=== PATIENT | female | born 2000 | race Caucasian/White ===

== ENCOUNTER 2020-10-03 00:42 | Inpatient (IN) | payer BC, MEDICAID ==
[2020-10-03] MEDS ORDERED: SODIUM CHLORIDE 0.9% 1,000 ML IV ONE (01:33)
--- NOTE | 2020-10-03 02:54 | ED ---
Overdose HPI - General Source: EMS Mode of arrival: EMS Limitations: no limitations - History of Present Illness MD Complaint: intentional overdose -: hour(s) Intent: suicide attempt <Antoni Feng - Last Filed: 10/03/20 06:36> <Mino Zaidi - Last Filed: 10/03/20 08:11> - General Chief Complaint: Overdose Stated Complaint: overdose transfer Time Seen by Provider: 10/03/20 00:44 - History of Present Illness Initial Comments: This patient is a 19-year-old woman who is here as a transfer from [facility]. The patient had gone there tonight with complaint of feeling depressed, having suicidal ideation, and then having taken a number of extra doses of her home medications. The patient was not able to quantify exactly how much medication but had taken a number of extra doses of melatonin 10 mg, buspirone 15 mg, and propranolol 10 mg. It amounted to approximately 15 tablets over the course of the day. The patient had some studies there are none was transferred here as she was tachycardic and her initial presenting blood pressure was hypotensive, she was normotensive by time of transfer. When I interview the patient, she does states she is depressed and feeling suicidal. She is denying having any pain or dyspnea. She had some nausea and a couple of rounds of vomiting at the other facility but that has subsequently stopped. (Antoni Feng) - Related Data Allergies Allergy/AdvReac Type Severity Reaction Status Date / Time doxycycline Allergy Rash/Hives Verified 10/03/20 08:09 Iodine and Iodide Containing AdvReac Rapid Verified 10/03/20 08:09 Produc Heart Rate Review of Systems ROS Other: All systems not noted in ROS Statement are negative. Constitutional: Denies: fever, chills, weakness Eyes: Denies: vision change Respiratory: Denies: cough, dyspnea Cardiovascular: Denies: chest pain, palpitations, orthopnea, edema, syncope Gastrointestinal: Reports: as per HPI, nausea, vomiting. Denies: abdominal pain, diarrhea, constipation, hematemesis Genitourinary: Denies: dysuria, hematuria, abnormal menses Musculoskeletal: Denies: back pain Skin: Denies: rash Neurological: Denies: headache, weakness, numbness, abnormal gait Psychiatric: Reports: depression, suicidal thoughts. Denies: auditory hallucinations, visual hallucinations, homicidal thoughts <Antoni Feng - Last Filed: 10/03/20 06:36> ROS Other: All systems not noted in ROS Statement are negative. <Mino Zaidi - Last Filed: 10/03/20 08:11> ROS Statement: Those systems with pertinent positive or pertinent negative responses have been documented in the HPI. Past Medical History Past Medical History: Diabetes Mellitus, Thyroid Disorder Additional Past Medical History / Comment(s): Diabetes type 1, crohns, and hypothyroidism. History of Any Multi-Drug Resistant Organisms: None Reported Past Psychological History: ADD/ADHD, Anxiety, Depression, Schizoaffective Disorder Smoking Status: Vaper Past Alcohol Use History: Occasional Past Drug Use History: None Reported <Antoni Feng - Last Filed: 10/03/20 06:36> General Exam Limitations: no limitations General appearance: alert, in no apparent distress Head exam: Present: atraumatic, normocephalic Eye exam: Present: normal appearance. Absent: scleral icterus, conjunctival injection ENT exam: Present: normal oropharynx Neck exam: Present: normal inspection, full ROM Respiratory exam: Present: normal lung sounds bilaterally. Absent: respiratory distress, wheezes, rales, rhonchi, stridor Cardiovascular Exam: Present: regular rate, normal rhythm, normal heart sounds. Absent: systolic murmur, diastolic murmur, rubs, gallop GI/Abdominal exam: Present: soft. Absent: distended, tenderness, guarding, rebound, rigid, mass Extremities exam: Present: normal inspection, normal capillary refill. Absent: pedal edema, calf tenderness Back exam: Present: normal inspection. Absent: CVA tenderness (R), CVA tenderness (L) Neurological exam: Present: alert, oriented X3, normal gait Psychiatric exam: Present: depressed, suicidal ideation. Absent: agitated, anxious, flat affect, manic, homicidal ideation Skin exam: Present: warm, dry, intact, normal color. Absent: rash <KinzanyasiaAntoni - Last Filed: 10/03/20 06:36> Course <Mino Zaidi - Last Filed: 10/03/20 08:11> Vital Signs 10/03/20 10/03/20 10/03/20 00:46 02:03 03:00 Temperature 98.0 F Pulse Rate 99 101 H 100 Respiratory 20 20 18 Rate Blood Pressure 97/57 97/55 113/63 O2 Sat by Pulse 97 97 97 Oximetry 10/03/20 10/03/20 04:07 05:00 Temperature Pulse Rate 102 H 102 H Respiratory 18 20 Rate Blood Pressure 112/72 106/62 O2 Sat by Pulse 97 97 Oximetry - Reevaluation(s) Reevaluation #1: 10/03/20 08:08 Patient was endorsed me by Dr. Feng at our shift change. Pending evaluation by the EPS service. Patient is awake alert oriented 3 demonstrating evidence of depression and suicidal ideation. Patient will be admitted for inpatient evaluation and treatment. (Mino Zaidi) Medical Decision Making - EKG Data -: EKG Interpreted by Me EKG shows normal: sinus rhythm (With sinus arrhythmia, rate 82 bpm), axis (Normal), intervals (Normal), QRS complexes (Normal), ST-T waves (Normal) Rate: normal <Antoni Feng - Last Filed: 10/03/20 06:36> - Medical Decision Making Patient is 19-year-old woman who took a mixture of her prescribed medicines and then went to outside hospital. She was transferred here for availability of more comprehensive care. The patient is observed here in the department and her heart rhythm and blood pressure remained stable. She is cleared for behavioral health evaluation. (Antoni Feng) - Lab Data Lab Results 10/03/20 Range/Units 07:12 POC Glucose (mg/dL) 106 H (75-99) mg/dL POC Glu Miner Helper ID Roderick Jordan Disposition <Antoni Feng - Last Filed: 10/03/20 06:36> <Mino Zaidi - Last Filed: 10/03/20 08:11> Clinical Impression: Drug overdose, Suicidal ideation Disposition: TRANSFER TO PSYCH HOSP/UNIT Condition: Fair Referrals: Marie Delgado MD [Primary Care Provider] - 1-2 days
[2020-10-03 07:14] LABS: Glucose,Whole Blood 106 mg/dL (75-99)
--- NOTE | 2020-10-03 08:41 | ED ---
Medical Decision Making - Lab Data Lab Results 10/03/20 10/03/20 Range/Units 07:12 07:47 POC Glucose (mg/dL) 106 H (75-99) mg/dL POC Glu System Sales Consultant ID Roderick Jordan Coronavirus (PCR) Not Detected (Not Detectd) - EKG Data -: EKG Interpreted by Me EKG shows normal: sinus rhythm, axis, intervals, QRS complexes EKG Comments: Sinus rhythm a 97 MO interval 150 QRS duration 76 daily since QTC 344/449 nonspecific T-wave changes Disposition Clinical Impression: Drug overdose, Suicidal ideation Disposition: TRANSFER TO PSYCH HOSP/UNIT Condition: Fair Referrals: Marie Delgado MD [Primary Care Provider] - 1-2 days
[2020-10-03] MEDS ORDERED: MAGNESIUM HYDROXIDE 2,400 MG/10 ML CUP PO PRN (10:36)
[2020-10-03] MEDS ORDERED: ACETAMINOPHEN TAB 325 MG TAB PO PRN (10:36)
[2020-10-03] MEDS ORDERED: MAG HYDROX/AL HYDROX/SIMETH 30 ML CUP PO PRN (10:36)
[2020-10-03] MEDS ORDERED: hydrOXYzine pamoate 25 MG CAP PO PRN (10:39)
[2020-10-03] MEDS ORDERED: HALOPERIDOL LACTATE 5 MG/ML 1 ML VIAL IM PRN (10:41)
[2020-10-03] MEDS ORDERED: haloperidoL 5 MG TAB PO PRN (10:42)
[2020-10-03] MEDS ORDERED: NICOTINE 14MG/24HR PATCH TRANSDERM SCH (10:45)
[2020-10-03 12:42] LABS: Glucose,Whole Blood 89 mg/dL (75-99)
[2020-10-03] MEDS: NICOTINE 21MG/24HR PATCH TRANSDERM SCH (13:40)
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
[2020-10-03 16:08] VITALS: RESP 18
[2020-10-03] MEDS: busPIRone HCl 5 MG TAB PO SCH ×3 (16:25→21:02)
[2020-10-03] MEDS: IBUPROFEN 400 MG TAB PO PRN (16:28)
[2020-10-03 18:03] LABS: Glucose,Whole Blood 102 mg/dL (75-99)
[2020-10-03 19:58] LABS: Glucose,Whole Blood 127 mg/dL (75-99)
[2020-10-03] MEDS ORDERED: VENLAFAXINE HCL ER 75 MG CAP PO SCH (21:00)
[2020-10-03] MEDS: DESMOPRESSIN 0.2 MG TAB PO SCH (21:02)
--- NOTE | 2020-10-03 23:34 | P.CONS ---
History of Present Illness - Reason for Consult Consult date: 10/03/20 - History of Present Illness The patient is a 19-year-old transgender male with a PMH of hypothyroidism, depression, and type II DM who was transferred to emergency room from [facility] after a suicide attempt by overdose. Reportedly, the patient took a seven-day supply of all of his medications due to suicidal ideation. The patient notes that the voices in his head were telling him to kill himself. He reported some mild diffuse abdominal pain and denied additional complaints. Denied chest pain, shortness of breath, palpitation, nausea, vomiting, diarrhea, fever, chills, cough. In the emergency room, EKG revealed normal sinus rhythm with sinus arrhythmia at 97 bpm with T-wave flattening in V1, V5, and V6. Review of Systems Pertinent positives and negatives as discussed in HPI, a complete review of systems was performed and all other systems are negative. Past Medical History Past Medical History: Diabetes Mellitus, Thyroid Disorder Additional Past Medical History / Comment(s): Diabetes type 1, crohns, and hypothyroidism. History of Any Multi-Drug Resistant Organisms: None Reported Smoking Status: Former smoker, Vaper Medications and Allergies Home Medications Medication Instructions Recorded Confirmed Type Cetirizine HCl [Zyrtec] 10 mg PO DAILY 10/03/20 10/03/20 History Desmopressin Acetate 0.1 mg PO HS 10/03/20 10/03/20 History Levothyroxine Sodium [Synthroid] 75 mcg PO DAILY 10/03/20 10/03/20 History Melatonin 15 mg PO HS 10/03/20 10/03/20 History Prazosin [Minipress] 3 mg PO HS 10/03/20 10/03/20 History Propranolol [Inderal] 10 mg PO TID 10/03/20 10/03/20 History busPIRone HCL 15 mg PO TID 10/03/20 10/03/20 History haloperidoL [Haldol] 5 mg PO HS 10/03/20 10/03/20 History hydrOXYzine pamoate [Vistaril] 50 mg PO BID PRN 10/03/20 10/03/20 History metFORMIN HCL [Glucophage] 500 mg PO DAILY 10/03/20 10/03/20 History traZODone HCL 50 - 150 mg PO HS 10/03/20 10/03/20 History Allergies Allergy/AdvReac Type Severity Reaction Status Date / Time Iodine and Iodide Containing Allergy Severe Anaphylaxis Verified 10/03/20 12:13 Produc shellfish derived [Shellfish] Allergy Severe Anaphylaxis Verified 10/03/20 12:13 doxycycline Allergy Intermediate Rash/Hives Verified 10/03/20 12:02 papaya Allergy Intermediate Rash/Hives Verified 10/03/20 12:13 Physical Exam Vitals: Vital Signs Temp Pulse Pulse Resp BP BP Pulse Ox 10/03/20 16:06 97.8 F 95 18 139/76 10/03/20 14:30 97.2 F L 65 20 122/75 100 10/03/20 05:00 102 H 20 106/62 97 10/03/20 04:07 102 H 18 112/72 97 10/03/20 03:00 100 18 113/63 97 10/03/20 02:03 101 H 20 97/55 97 10/03/20 00:46 98.0 F 99 20 97/57 97 Intake and Output 10/03/20 10/03/20 10/04/20 14:59 22:59 06:59 Other: Weight 87.657 kg General: non toxic, no distress, appears at stated age, obese Derm: no unusual rashes/lesions no unusual ecchymoses, warm, dry Head: atraumatic, normocephalic, symmetric Eyes: EOMI, no lid lag, anicteric sclera, pupils equal round reactive to light ENT: Nose and ears atraumatic, no thrush, no pharyngeal erythema Neck: No thyromegaly, no cervical lymphadenopathy, trachea midline, supple Mouth: no lip lesion, mucus membranes moist Cardiovascular: S1S2 reg, no murmur, positive posterior tibial pulse bilateral, no edema, capillary refill less than 2 seconds Lungs: CTA bilateral, no rhonchi, no rales , no accessory muscle use Abdominal: soft, minimal diffuse tenderness, no guarding, no appreciable organ omegaly, normal bowel sounds Ext: no gross muscle atrophy, muscle strength 5 out of 5 in all 4 extremities grossly, no contractures, Neuro: CN II-XI grossly intact, light touch intact all 4 extremities, finger to nose within normal limits, Psych: Alert, oriented, appropriate affect Results Labs: Abnormal Lab Results - Last 24 Hours (Table) 10/03/20 10/03/20 10/03/20 Range/Units 07:12 18:01 19:55 POC Glucose (mg/dL) 106 H 102 H 127 H (75-99) mg/dL Assessment and Plan Plan: Multiple substance overdose -Obtain repeat labs -Patient currently symptom-free aside from minimal abdominal pain Chronic conditions: Hypothyroidism, type II DM -Continue home medications in am following labs Depression and suicidal ideation -As per psychiatry Thank you for allowing us to participate in the care of this patient. We will follow peripherally. Do not hesitate to contact us with questions. Someone can be reached from the [facility] hospitalist group at all hours of the day at [phone].
[2020-10-04] MEDS: LEVOTHYROXINE 75 MCG TAB PO SCH (06:18)
[2020-10-04] MEDS: NICOTINE 21MG/24HR PATCH TRANSDERM SCH (08:09)
[2020-10-04] MEDS: busPIRone HCl 5 MG TAB PO SCH ×3 (08:10→21:28)
[2020-10-04] MEDS: LORATADINE 10 MG TAB PO SCH (08:10)
[2020-10-04 08:20] LABS: Glucose,Whole Blood 103 mg/dL (75-99)
[2020-10-04 09:18] LABS: HCT 40.9 % (34.0-46.0); HGB 13.8 gm/dL (11.4-16.0); MCH 28.5 pg (25.0-35.0); MCHC 33.8 g/dL (31.0-37.0); MCV 84.5 fL (80.0-100.0); Mean Platelet Volume 8.2; Platelet Count 359 k/uL (150-450); RBC 4.84 m/uL (3.80-5.40); RDW 13.7 % (11.5-15.5); WBC 11.2 k/uL (4.0-11.0)
[2020-10-04 09:27] LABS: ALT 40 U/L (4-34); AST 20 U/L (14-36); African American GFR (CKD) >90 (>60 ml/min/1.73 sqM); Albumin 4.4 g/dL (3.5-5.0); Alkaline Phosphatase 85 U/L (38-126); Anion Gap 10 mmol/L; Blood Urea Nitrogen 11 mg/dL (7-17); Calcium 9.8 mg/dL (8.4-10.2); Carbon Dioxide 22 mmol/L (22-30); Chloride 107 mmol/L (98-107); Cholesterol 158 mg/dL (<200); Glucose 139 mg/dL (74-99); HDL Cholesterol 42 mg/dL (40-60); LDL Cholesterol,Calculated 90 mg/dL (0-99); Non-African American GFR(CKD) >90 (>60 ml/min/1.73 sqM); Potassium 4.7 mmol/L (3.5-5.1); Sodium 139 mmol/L (137-145); Total Bilirubin 0.8 mg/dL (0.2-1.3); Total Protein 7.3 g/dL (6.3-8.2); Triglycerides 132 mg/dL (<150)
[2020-10-04] MEDS: NICOTINE POLACRILEX 2 MG GUM BUCCAL PRN ×2 (10:37→21:32)
--- NOTE | 2020-10-04 10:59 | P.PN ---
Progress Note - Text Progress Note Date: 10/04/20 Interval History: Patient is a female to male transgender patient who prefers he/him pronouns and goes by the name Melo. Patient was seen attending group and was directable and agreeable to speak with insurance underwriter sales in the office. She continues to endorse significant depression and anxiety. At this time, the patient is wondering why he was not started on his home medications of clonidine and melatonin. He was informed that this was not listed as all medications on the medical record. He reports no significant benefit at this time from the medication management. He is currently endorsing suicidal thoughts but no intentions or plans. He reports no homicidal ideation, intention, and/or plan. At this time patient denies any suicidal or homical ideations, intent or plan. Patient denies any auditory, visual hallucinations and denies any paranoia or delusions. Patient denies any side effects from the medications and has been compliant with meds. Mental Status Exam: General Appearance: Patient appears to be stated age is alert, directable, and cooperative. Short build with obese body habitus. Short cut hair. Multiple tattoos. Behavior: Patient is calmly seated without any agitated behavior. Somewhat irritable. Speech: Patient's speech is fluent and nonpressured. Spontaneous. Mood/Affect: Mood is depressed and anxious, affect is irritable. Suicidality/Homicidality: The patient endorses suicidal ideation but no intention or plan. Patient denies any homicidal ideation, intention, and/or plan. Perceptions: Patient denies any visual hallucinations and denies any auditory hallucinations Though content/process: There is no evidence of any delusional thought content and thought process is linear and goal-directed. Fixation on medications. Memory and concentration: AOX3, grossly intact for the purposes of this session Judgment and insight: Poor Assessment Major Depressive Disorder, recurrent, severe, with psychotic features Posttraumatic Stress Disorder Cluster B Personality Traits Gender Dysphoria Plan: -Patient continues to meet criteria for inpatient psychiatric admission for symptom stabilization and safety. Patient has signed adult voluntary form and medication consent and was placed in patient's chart. -Medications: Start clonidine 0.1 mg by mouth twice a day for posttraumatic stress disorder Increase Effexor XR to 150 mg by mouth daily at bedtime for management of depression/anxiety Continue BuSpar 15 mg by mouth 3 times a day for anxiety Continue desmopressin 0.1 mg at bedtime for nocturnal enuresis Start melatonin 15 mg by mouth at bedtime for insomnia as per patient preference -When necessary Ativan and Haldol for agitation/aggression. -NRT - nicotine patch -SW on board for discharge planning. Encouraged the patient to participate in milieu.
[2020-10-04 12:59] LABS: Glucose,Whole Blood 81 mg/dL (75-99)
[2020-10-04 17:52] LABS: Glucose,Whole Blood 122 mg/dL (75-99)
[2020-10-04 20:05] LABS: Glucose,Whole Blood 127 mg/dL (75-99)
[2020-10-04] MEDS ORDERED: MELATONIN 5 MG TABLET PO SCH (21:00)
[2020-10-04] MEDS: DESMOPRESSIN 0.2 MG TAB PO SCH (21:26)
[2020-10-04] MEDS: cloNIDine HCL 0.1 MG TAB PO SCH (21:26)
[2020-10-04] MEDS: VENLAFAXINE HCL ER 150 MG CAP PO SCH (21:28)
[2020-10-05] MEDS: LEVOTHYROXINE 75 MCG TAB PO SCH (06:27)
[2020-10-05 07:56] LABS: Glucose,Whole Blood 108 mg/dL (75-99)
[2020-10-05] MEDS: cloNIDine HCL 0.1 MG TAB PO SCH ×2 (08:06→20:08)
[2020-10-05] MEDS: busPIRone HCl 5 MG TAB PO SCH ×3 (08:06→20:08)
[2020-10-05] MEDS: LORATADINE 10 MG TAB PO SCH (08:06)
[2020-10-05] MEDS: IBUPROFEN 400 MG TAB PO PRN (12:46)
[2020-10-05 12:51] LABS: Glucose,Whole Blood 77 mg/dL (75-99)
[2020-10-05 12:51] LABS: Glucose,Whole Blood 62 mg/dL (75-99)
[2020-10-05] MEDS ORDERED: TEMAZEPAM 15 MG CAP PO PRN (13:58)
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
[2020-10-05 17:36] LABS: Glucose,Whole Blood 113 mg/dL (75-99)
[2020-10-05] MEDS: DESMOPRESSIN 0.2 MG TAB PO SCH (20:08)
[2020-10-05] MEDS: VENLAFAXINE HCL ER 150 MG CAP PO SCH (20:09)
[2020-10-05 20:15] LABS: Glucose,Whole Blood 184 mg/dL (75-99)
[2020-10-06 07:51] LABS: Glucose,Whole Blood 109 mg/dL (75-99)
[2020-10-06] MEDS: LEVOTHYROXINE 75 MCG TAB PO SCH (07:52)
[2020-10-06] MEDS: busPIRone HCl 5 MG TAB PO SCH ×3 (08:46→20:55)
[2020-10-06] MEDS: LORATADINE 10 MG TAB PO SCH (08:46)
[2020-10-06] MEDS: cloNIDine HCL 0.1 MG TAB PO SCH ×2 (08:46→20:55)
[2020-10-06 12:08] LABS: Glucose,Whole Blood 100 mg/dL (75-99)
--- NOTE | 2020-10-06 14:19 | P.PN ---
Progress Note - Text Progress Note Date: 10/06/20 Clinical Problems: Major Depressive Disorder, recurrent, severe, with psychotic features, Posttraumatic Stress Disorder, Cluster B Personality Traits, Gender Dysphoria Interim history: I reviewed the medical record and interviewed the patient. He complained that he did not sleep last night. He did not take a when necessary dose of Restoril allegedly because he confused state name of this medication with Vistaril. He reports continued feelings of depression but denied suicidal thoughts or wishes. He infrequently attends therapeutic groups and activities. He slept 5 hours last night. He spends most of time in bed, after meals her medications. Mental status exam: He presented as a short, moderately obese and casually groomed transsexual male. He made eye contact and appeared to attend to the interview. He had a flat facial expression. He has psychomotor retardation but no abnormal involuntary movements. His speech was spontaneous with decreased rate and rhythm. His affect was depressed and not reactive. He denied suicidal ideation or wishes. He denied homicidal ideation. He did not express feelings of hopelessness or helplessness. He ruminated about chronic insomnia. Not express ideas reference, paranoid ideation or delusions. His thinking was concrete but his associations were organized, coherent and goal directed. He denied hallucinations did not appear to be responding to internal stimuli. Assessment: Overall he appears moderately mentally ill and mentally improve from admission. Plan: Inpatient treatment. Safety precautions. Continue BuSpar 15 mg 3 times a day, Vistaril 50 mg twice a day when necessary for anxiety, Effexor XR 150 mg at bedtime. Continue Restoril 15 mg at bedtime when necessary for sleep. Encourage participation in therapeutic groups and activities. Evaluate clinical status response to treatment daily basis.
[2020-10-06 17:58] LABS: Glucose,Whole Blood 116 mg/dL (75-99)
[2020-10-06 20:09] LABS: Glucose,Whole Blood 199 mg/dL (75-99)
[2020-10-06] MEDS: VENLAFAXINE HCL ER 150 MG CAP PO SCH (20:54)
[2020-10-06] MEDS: DESMOPRESSIN 0.2 MG TAB PO SCH (20:55)
[2020-10-06 21:12] LABS: Glucose,Whole Blood 201 mg/dL (75-99)
[2020-10-07] MEDS: LEVOTHYROXINE 75 MCG TAB PO SCH (06:17)
[2020-10-07 06:39] VITALS: BP 118/59; PULSE 66; TEMP 97.5
[2020-10-07 07:51] LABS: Glucose,Whole Blood 105 mg/dL (75-99)
[2020-10-07] MEDS: cloNIDine HCL 0.1 MG TAB PO SCH (08:53)
[2020-10-07] MEDS: busPIRone HCl 5 MG TAB PO SCH (08:53)
[2020-10-07] MEDS: LORATADINE 10 MG TAB PO SCH (08:53)
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
== END 2020-10-07 12:15 | disposition home or self-care (01) | DRG 885 ==
LOC: EC 00:42 → 3MHU 10:20
PROVIDERS: ADMIT Psychiatry & Neurology Psychiatry; ATTEND Psychiatry & Neurology Psychiatry
DX: F33.3 Major depressive disorder, recurrent, severe with psychotic symptoms (principal); K50.90 Crohn's disease, unspecified, without complications; E11.9 Type 2 diabetes mellitus without complications; I95.9 Hypotension, unspecified; T50.902A Poisoning by unspecified drugs, medicaments and biological substances, intentional self-harm, initial encounter; F60.89 Other specific personality disorders; Z20.822 Contact with and (suspected) exposure to COVID-19; E03.9 Hypothyroidism, unspecified; F43.10 Post-traumatic stress disorder, unspecified; F90.9 Attention-deficit hyperactivity disorder, unspecified type; R00.0 Tachycardia, unspecified; F64.9 Gender identity disorder, unspecified; G47.00 Insomnia, unspecified; N39.44 Nocturnal enuresis; E66.9 Obesity, unspecified; F64.0 Transsexualism; F17.290 Nicotine dependence, other tobacco product, uncomplicated; R45.87 Impulsiveness; Z68.37 Body mass index [BMI] 37.0-37.9, adult; Z91.5 Personal history of self-harm; Z79.890 Hormone replacement therapy; Z79.84 Long term (current) use of oral hypoglycemic drugs; Z79.899 Other long term (current) drug therapy; Z87.440 Personal history of urinary (tract) infections; Z91.041 Radiographic dye allergy status; Z88.1 Allergy status to other antibiotic agents
CPT/HCPCS: 36415; 80053; 80061; 82075; 83036; 83605; 85027; 87086; 87635; 93005; 96360; 99285